=== PATIENT | male | born 1985 | race Hispanic/Latino ===

== ENCOUNTER 2021-01-23 04:21 | Emergency (ER) | payer SELFPAY ==
[2021-01-23] MEDS ORDERED: LIDOCAINE 1% MPF 5 ML VIAL ONE ×2 (05:05→05:19)
[2021-01-23] MEDS ORDERED: CEFAZOLIN SODIUM 1 GM/VIAL ONE (05:25)
[2021-01-23] MEDS ORDERED: WATER FOR INJ,STERILE 10 ML ONE (05:26)
--- NOTE | 2021-01-23 05:35 | ER ---
Nurse's Notes [facility] Name: Heath Simental Jr Age: 35 yrs Sex: Male : 1985 Arrival Date: 01/23/2021 Time: 04:23 Bed 6 Private MD: Diagnosis: Laceration right hand Presentation: 01/23 04:39 Chief complaint: Patient states: he cut his right hand while unloading his boat to go [employer] last night. Coronavirus screen: At this time, the client does not indicate any symptoms associated with coronavirus-19. Ebola Screen: No symptoms or risks identified at this time. Complicating Factors: There are no complicating factors for this patient. Initial Sepsis Screen: Does the patient meet any 2 criteria? No. Patient's initial sepsis screen is negative. Does the patient have a suspected source of infection? No. Patient's initial sepsis screen is negative. Risk Assessment: Do you want to hurt yourself or someone else? Patient reports no desire to harm self or others. Onset of symptoms was January 22, 2021. 04:39 Method Of Arrival: Ambulatory 04:39 Acuity: SOMMER 4 bb Triage Assessment: 04:40 Injury Description: Laceration sustained to medial aspect of right hand is jagged, was bb sustained 6-12 hours ago. is bleeding a small amount. Historical: - Allergies: 04:40 No Known Allergies; bb - Home Meds: 04:40 None [Active]; bb - PMHx: 04:40 None; bb - PSHx: 04:40 None; bb - Immunization history:: Adult Immunizations up to date, Last tetanus immunization: < 5 years ago. - Social history:: Smoking status: Patient denies any tobacco usage or history of. Patient/guardian denies using alcohol, street drugs. Screenin:30 Abuse screen: Denies threats or abuse. Denies injuries from another. Nutritional bs2 screening: No deficits noted. Tuberculosis screening: No symptoms or risk factors identified. Fall Risk None identified. Assessment: 04:30 General: Appears in no apparent distress. uncomfortable, Behavior is calm, cooperative, bs2 appropriate for age. Pain: Complains of pain in right hand Pain currently is 3 out of 10 on a pain scale. Neuro: No deficits noted. Cardiovascular: No deficits noted. Respiratory: No deficits noted. Musculoskeletal: No deficits noted. Injury Description: Laceration sustained to right hand is jagged, 7.6 to 20 cm long, not bleeding, was sustained 6-12 hours ago. Vital Signs: 04:39 BP 129 / 90; Pulse 118; Resp 18 S; Temp 98.1(O); Pulse Ox 100% on R/A; Weight 81.65 kg bb (R); Height 5 ft. 0 in. (152.40 cm) (R); Pain 4/10; 04:39 Body Mass Index 35.15 (81.65 kg, 152.40 cm) bb ED Course: 04:23 Patient arrived in ED. bp1 04:30 Patient has correct armband on for positive identification. Bed in low position. Call bs2 light in reach. 04:32 Carmelo Harkins MD is Attending Physician. pkl 04:40 Triage completed. bb 04:40 Arm band placed on Patient placed in an exam room, on a stretcher, on pulse oximetry. bb 04:42 Wound care: was cleaned with with hydrogen peroxide and soap and water. bb 05:13 Hand Right 2 View XRAY In Process Unspecified. EDMS 05:30 Assist provider with laceration repair on outer aspect of right palm that was between lp1 2.6 to 7.5 cm using sutures. Set up tray. Performed by Carmelo Harkins MD. 05:33 Pardeep Dee MD is Referral Physician. pkl 05:48 Margaret Gilliland, PATO is Primary Nurse. bs2 05:49 Wound care: was dressed with non-adherent pad, 4x4's, FARIBA wrap . lp1 05:50 Assist provider with laceration repair on right hand using sutures. Set up tray. bs2 Performed by Carmelo Harkins MD Patient tolerated well. Patient did not have IV access during this emergency room visit. Administered Medications: 05:35 Drug: Ancef (cefazolin) 1 grams Route: IM; Site: left deltoid; lp1 05:49 Follow up: Response: No adverse reaction bs2 Outcome: 05:35 Discharge ordered by . pkl 05:50 Discharged to home ambulatory. bs2 05:50 Condition: improved 05:50 Discharge instructions given to patient, Instructed on discharge instructions, follow up and referral plans. medication usage, wound care, Demonstrated understanding of instructions, follow-up care, medications, wound care, Prescriptions given X 1. 05:51 Patient left the ED. bs2 Signatures: Dispatcher [employer] EDMS Carmelo Harkins MD MD pkl Ballard, Brenda, RN RN bb Cynthia Gonzalez RN RN lp1 Neha Choudhury Bridget, RN RN bs2
--- NOTE | 2021-01-23 05:36 | EDPHYS ---
Physician Documentation [facility] Name: Heath Simental Jr Age: 35 yrs Sex: Male : 1985 Arrival Date: 01/23/2021 Time: 04:23 Bed 6 Private MD: ED Physician Carmelo Harkins HPI: 01/23 04:38 This 35 yrs old Male presents to ER via Unassigned with complaints of pkl Laceration To Hand. 04:38 The patient or guardian reports injury, a laceration, 4 cm(s), ragged. The complaints pkl affect the right hand diffusely. Context: resulted from Cut on metal ptece. Onset: The symptoms/episode began/occurred just prior to arrival. Associated signs and symptoms: The patient has no apparent associated signs or symptoms. Historical: - Allergies: 04:40 No Known Allergies; bb - Home Meds: 04:40 None [Active]; bb - PMHx: 04:40 None; bb - PSHx: 04:40 None; bb - Immunization history:: Adult Immunizations up to date, Last tetanus immunization: < 5 years ago. - Social history:: Smoking status: Patient denies any tobacco usage or history of. Patient/guardian denies using alcohol, street drugs. ROS: 04:38 Eyes: Negative for injury, pain, redness, and discharge, ENT: Negative for injury, pkl pain, and discharge, Neck: Negative for injury, pain, and swelling, Cardiovascular: Negative for chest pain, palpitations, and edema, Respiratory: Negative for shortness of breath, cough, wheezing, and pleuritic chest pain, Abdomen/GI: Negative for abdominal pain, nausea, vomiting, diarrhea, and constipation, Back: Negative for injury and pain, : Negative for injury, bleeding, discharge, and swelling, Neuro: Negative for headache, weakness, numbness, tingling, and seizure. 04:38 MS/extremity: Positive for laceration, of the Laceration hypothenar aspect right hand. Exam: 04:38 Head/Face: Normocephalic, atraumatic. Eyes: Pupils equal round and reactive to light, pkl extra-ocular motions intact. Lids and lashes normal. Conjunctiva and sclera are non-icteric and not injected. Cornea within normal limits. Periorbital areas with no swelling, redness, or edema. ENT: Nares patent. No nasal discharge, no septal abnormalities noted. Tympanic membranes are normal and external auditory canals are clear. Oropharynx with no redness, swelling, or masses, exudates, or evidence of obstruction, uvula midline. Mucous membranes moist. Neck: Trachea midline, no thyromegaly or masses palpated, and no cervical lymphadenopathy. Supple, full range of motion without nuchal rigidity, or vertebral point tenderness. No Meningismus. Chest/axilla: Normal chest wall appearance and motion. Nontender with no deformity. No lesions are appreciated. Cardiovascular: Regular rate and rhythm with a normal S1 and S2. No gallops, murmurs, or rubs. Normal PMI, no JVD. No pulse deficits. Respiratory: Lungs have equal breath sounds bilaterally, clear to auscultation and percussion. No rales, rhonchi or wheezes noted. No increased work of breathing, no retractions or nasal flaring. Abdomen/GI: Soft, non-tender, with normal bowel sounds. No distension or tympany. No guarding or rebound. No evidence of tenderness throughout. Back: No spinal tenderness. No costovertebral tenderness. Full range of motion. Neuro: Awake and alert, GCS 15, oriented to person, place, time, and situation. Cranial nerves II-XII grossly intact. Motor strength 5/5 in all extremities. Sensory grossly intact. Cerebellar exam normal. Normal gait. 04:38 Musculoskeletal/extremity: Extremities: grossly normal except: pain, laceration, right hand. Vital Signs: 04:39 BP 129 / 90; Pulse 118; Resp 18 S; Temp 98.1(O); Pulse Ox 100% on R/A; Weight 81.65 kg bb (R); Height 5 ft. 0 in. (152.40 cm) (R); Pain 4/10; 04:39 Body Mass Index 35.15 (81.65 kg, 152.40 cm) bb Laceration: 05:31 Wound Repair of 4cm ( 1.6in ) subcutaneous laceration to right hand. Irregularly pkl shaped.. Distal neuro/vascular/tendon intact. Anesthesia: Local anesthetic administered with 8 mls of 1% lidocaine. Wound prep: Extensive cleansing, Wound irrigation by wy. Skin closed with 4 4-0 Prolene using simple sutures and sterile technique. Dressed with Bacitracin, 4x4's. Patient tolerated well. MDM: 04:32 Patient medically screened. pkl 05:31 Data reviewed: vital signs, nurses notes, radiologic studies. pkl 01/23 04:38 Order name: Hand Right 2 View XRAY pkl 01/23 05:40 Order name: Sling; Complete Time: 05:48 pkl Administered Medications: 05:35 Drug: Ancef (cefazolin) 1 grams Route: IM; Site: left deltoid; lp1 05:49 Follow up: Response: No adverse reaction bs2 Disposition Summary: 01/23/21 05:35 Discharge Ordered Location: Home pkl Problem: new pkl Symptoms: have improved pkl Condition: Stable pkl Diagnosis - Laceration right hand pkl Followup: pkl - With: Pardeep Dee MD - When: 2 - 3 days - Reason: Re-evaluation by your physician Discharge Instructions: - Discharge Summary Sheet pkl Forms: - Medication Reconciliation Form pkl - Thank You Letter pkl - Antibiotic Education pkl - Work release form pkl - Prescription Opioid Use pkl Prescriptions: - Cephalexin 500 mg Oral Capsule - take 1 capsule by ORAL route every 6 hours for 10 days; 40 capsule; Refills: 0, pkl Product Selection Permitted Signatures: Dispatcher [employer] Carmelo Amos MD MD pkl Brandee Taveras, RN RN Cynthia Kunz RN RN lp1 Margaret Gilliland RN bs2
[2021-01-23 05:56] VITALS: BP 129/90; TEMP 98.1; O2SAT 100
--- NOTE | 2021-01-23 08:29 | RAD REPORT ---
EXAM DESCRIPTION: RAD - Hand Right 2 View - 01/23/2021 5:13 am CLINICAL HISTORY: laceration COMPARISON: No comparisons FINDINGS: No acute fracture. No malalignment. No significant focal degenerative changes. IMPRESSION: No acute osseous abnormality involving the right hand.
== END 2021-01-23 05:51 | disposition home or self-care (01) ==
LOC: ER 04:21
PROC: 0JQJ0ZZ Repair Right Hand Subcutaneous Tissue and Fascia, Open Approach (ICD-10-PCS; principal; 2021-01-23)
DX: S61.411A Laceration without foreign body of right hand, initial encounter (principal); W45.8XXA Other foreign body or object entering through skin, initial encounter
CPT/HCPCS: 96372; 99284; J0690